=== PATIENT | male | born 1980 | race Caucasian/White ===

== ENCOUNTER 2018-04-14 12:40 | Emergency (ER) | payer MEDICAID ==
[~2018-04-14] VITALS: Ht 167.6 cm; Wt 59.0 kg
[2018-04-14 13:12] VITALS: BP 101/52
--- NOTE | 2018-04-14 14:18 | NUR ---
PT. CAME INTO THE ED DUE TO L RIB PAIN S/P FALL. PT HAS 10/10 SHARP PAIN THAT RADIATES FROM L RIB CAGE TO BACK. PT. STATES " I WAS AT MY SISTERS HOUSE YESTERDAY AND WAS TAKING OUT THE TRASH AND JUMPED OVER THE FENCE AND I FELL AND THEN FELL ON A BENCH HARD AND THEN DOWN". L RIB CAGE AREA NO BRUISING NOTED BUT PORTRUSION NOTED IN L LOWER RIB CAGE, BILAT. ANKLE PAIN DUE TO FALL, NO SWELLING NOTED AT THIS TIME OR BRUSING. L EYE SOCKET BRUISING NOTED. BACK OF HEAD DRIED BLOOD NOTED, DENIES -LOC . PERRLA 2MM BILAT EYES. AAOX4, RR EVEN AND UNLABORED. CHEST RISE SYMMETRICAL, DENIES N/V/D. LS: DIMINISHED ON LLL. ER MD NOTIFIED. WILL CONTINUE TO MONITOR. SAFETY PRECAUTIONS IMPLEMENTED. DENIES MEDICAL HX . DENIES ALLERGIES.
--- NOTE | 2018-04-14 15:30 | NUR ---
PT. RESTING IN BED, PROVIDED WITH JUICE AND WATER. RR EVEN AND UNLABORED. VSS . BED IN LOWEST POSITION. WILL CONTINUE TO MONITOR.
[2018-04-14] MEDS ORDERED: HYDROcodone/APAP 10/325 MG 1 TAB TAB PO ONE (15:45)
--- NOTE | 2018-04-14 16:40 | NUR ---
PT. PROVIDED WITH A SANDWICH AND JUICE, PT STATES " WHEN IS THE DOCTOR GOING TO COME IN". ER MD BARRAGAN TO SEE PATIENT.
[2018-04-14 17:17] VITALS: BP 110/74
--- NOTE | 2018-04-14 17:17 | NUR ---
Patient discharged with v/s stable. Written and verbal after care instructions given and explained. Patient alert, oriented and verbalized understanding of instructions. Ambulatory with steady gait. All questions addressed prior to discharge. ID band removed. Patient advised to follow up with PMD. Rx of IBURPOFEN given. Patient educated on indication of medication including possible reaction and side effects. Opportunity to ask questions provided and answered.
== END 2018-04-14 17:17 | disposition home or self-care (01) ==
LOC: MED 12:40
DX: S20.212A Contusion of left front wall of thorax, initial encounter (principal); W17.89XA Other fall from one level to another, initial encounter; Y93.89 Activity, other specified; Y92.89 Other specified places as the place of occurrence of the external cause; Y99.0 Civilian activity done for income or pay
CPT/HCPCS: 71111; 99284

== ENCOUNTER 2019-04-20 19:33 | Emergency (ER) | payer MEDICAID ==
[~2019-04-20] VITALS: Ht 167.6 cm; Wt 63.5 kg
[2019-04-20 19:48] VITALS: BP 102/68
[2019-04-20] MEDS: HYDROcodone/APAP 5/325 MG 1 TAB TAB PO ONE (20:09)
[2019-04-20 21:30] VITALS: BP 102/68
== END 2019-04-20 21:28 | disposition home or self-care (01) ==
LOC: MED 19:33
DX: S20.20XA Contusion of thorax, unspecified, initial encounter (principal); M79.672 Pain in left foot; V00.831A Fall from motorized mobility scooter, initial encounter; Y93.89 Activity, other specified; Y92.89 Other specified places as the place of occurrence of the external cause; Y99.8 Other external cause status
CPT/HCPCS: 71101; 73630; 99283; Q0092

== ENCOUNTER 2020-09-24 21:36 | Emergency (ER) | payer MEDICAID ==
[~2020-09-24] VITALS: Ht 177.8 cm; Wt 72.6 kg
[2020-09-24 21:40] VITALS: BP 149/83
[2020-09-24] MEDS ORDERED: HALOPERIDOL IM 5 MG/ML VIAL IM ONE (22:10)
[2020-09-24] MEDS ORDERED: diphenhydrAMINE 50 MG/ML VIAL IM ONE (22:10)
[2020-09-24] MEDS ORDERED: LORazepam 2 MG/ML VIAL IM ONE ×2 (22:10→22:55)
[2020-09-24 22:56] LABS: BASOPHILS # (AUTO) 0.1 K/uL (0.00-0.22); BASOPHILS % (AUTO) 0.6 % (0.0-2.0); EOSINOPHILS # (AUTO) 0.2 K/uL (0-0.4); EOSINOPHILS % (AUTO) 1.8 % (0.0-4.0); HEMOGLOBIN 12.5 g/dL (12.0-18.0); LYMPHOCYTES # (AUTO) 3.6 K/uL (2.0-11.5); LYMPHOCYTES % (AUTO) 33.4 % (20.5-51.1); MEAN CORPUSCULAR HEMOGLOBIN 29 pg (27-31); MEAN CORPUSCULAR HGB CONC 34 g/dL (33-37); MEAN CORPUSCULAR VOLUME 87.2 fL (80-94); MONOCYTES # (AUTO) 1.1 K/uL (0.8-1.0); MONOCYTES % (AUTO) 10.6 % (1.7-9.3); NEUTROPHILS # (AUTO) 5.8 K/uL (1.8-7.7); NEUTROPHILS % (AUTO) 53.6 % (42.2-75.2); PLATELET COUNT (AUTO) 284 K/uL (140-450); RED BLOOD CELL COUNT(AUTO) 4.25 MIL/uL (4.20-6.10); RED CELL DISTRIBUTION WIDTH 14.3 % (11.6-13.7); WHITE BLOOD COUNT (AUTO) 10.8 K/uL (4.8-10.8)
[2020-09-24 22:57] LABS: APPEARANCE,URINE CLEAR (CLEAR); BILIRUBIN,URINE NEGATIVE (NEGATIVE); BLOOD, URINE NEGATIVE (NEGATIVE); COLOR,URINE YELLOW (YELLOW); LEUKOCYTE ESTERASE ,URINE NEGATIVE (NEGATIVE); NITRITE, URINE NEGATIVE (NEGATIVE); PH,URINE 6.5 (5.0-9.0); UGLUCOSE NEGATIVE (NEGATIVE)
[2020-09-24 23:11] LABS: BARBITURATE, URINE NEGATIVE ng/ml (NEG <=200); BENZODIAZEPINE, URINE NEGATIVE ng/mL (NEG <=200); CANNABINOID, URINE POSITIVE ng/mL (NEG <=50); COCAINE, URINE POSITIVE ng/mL (NEG <=300); OPIATE, URINE POSITIVE ng/mL (NEG <=2000); PHENCYCLIDINE SCREEN,URINE NEGATIVE ng/mL (NEG <=25)
[2020-09-24 23:12] LABS: ALBUMIN 4.1 g/dL (3.4-5.0); ANION GAP 13.8 (8-16); ASPARTATE AMINOTRANSFERASE 39 U/L (15-37); CARBON DIOXIDE 25.9 mmol/L (21-32); CHLORIDE 101 mmol/L (98-107); CREATININE 1.1 mg/dL (0.6-1.3); GFR ARICAN-AMERICAN 95 mL/min (>90); GLUCOSE 115 mg/dL (74-106); POTASSIUM 3.7 mmol/L (3.5-5.1); SALICYLATE 2.9 mg/dL (2.8-20.0); SODIUM SERUM 137 mmol/L (136-145); TOTAL BILIRUBIN 0.3 mg/dL (0.0-1.0); UREA NITROGEN, BLOOD 13 mg/dL (7-18)
[2020-09-25] LABS: ACETAMINOPHEN < 0.5 ug/ml (10-30)
[2020-09-25] MEDS ORDERED: ZIPRASIDONE MESYLATE 20 MG/ML VIAL IM ONE ×2 (01:32→01:35)
[2020-09-25] MEDS ORDERED: LIDOCAINE MPF 1% 5 ML ONE (01:34)
[2020-09-25 10:12] VITALS: BP 112/69
[2020-09-25] MEDS ORDERED: NALO4SPR NS (12:05)
== END 2020-09-25 12:27 | disposition home or self-care (01) ==
LOC: MED 21:36
DX: T50.995A Adverse effect of other drugs, medicaments and biological substances, initial encounter (principal); F10.129 Alcohol abuse with intoxication, unspecified; Y92.89 Other specified places as the place of occurrence of the external cause
CPT/HCPCS: 36415; 80053; 80305; 81003; 83690; 85025; 93005; 96372; 99285; C1758; G0480; G0482; J1200; J1630; J2001; J2060; J3486